=== PATIENT | female | born 1980 | race Asian ===

== ENCOUNTER → 2017-01-22 | Day surgery (SDC) | payer OTHER ==
[~2017-01-22] MED LIST: BUPIVACAINE HCL PF 0.25% 30 ML VIAL ONE; FERRIC SUBSULFATE 8 ML TOP SOLN TOPICAL ONE; IBUP600 PO; IODINE (STRONG-LUGOLS) SOLN 20 DROP/1 ML BTL TOPICAL ONE; KETOROLAC TROMETHAMINE 30 MG/ML (IVP) VIAL IV PUSH ONE; LACTATED RINGER'S 1000 ML INJ 1,000 ML ONE; MIDAZOLAM HCL 2 MG/2 ML VIAL ONE; ONDANSETRON HCL 4 MG/2 ML VIAL IV PUSH ONE; PERI8.6T PO; PREN1TAB30; PROPOFOL 200 MG/20 ML AMP IV ONE; ceFAZolin INJ 1,000 MG VIAL ONE
--- NOTE | 2017-01-22 14:25 | MP ---
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 PROCEDURE Cold knife cone biopsy. Exam under anesthesia. POSTOPERATIVE DIAGNOSIS High-grade cervical dysplasia, SAI 2-3. SURGEON MD Zackery ANESTHESIA General with LMA. ESTIMATED BLOOD LOSS Minimal, less than 50 cc. DRAINS None. OPERATIVE FINDINGS The patient had patulous-appearing cervix but no focal abnormality. The cervix was symmetrical with no visible abnormality. INDICATION FOR PROCEDURE Patient with abnormal Pap revealing high-grade cervical dysplasia. 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 Recommendation was to proceed with cold knife cone biopsy. ANTIBIOTICS The patient received Ancef 1 gram prophylactically. PROCEDURE DESCRIPTION The patient was taken to the operating room in stable condition, underwent general anesthesia with LMA. She was carefully positioned in dorsal lithotomy position using candy-cane stirrups with sequentials placed on the lower extremities for VTE prophylaxis. She was prepped and draped, time-out was conducted and agreed by all present in the room. Simple exam revealed midline pelvis. Uterus was normal size and shape. She had normal-appearing midline cervix. The cervix was injected with 0.25% plain Marcaine, 10 cc, about 5 cc at the 3 and 9 o'clock position. Lugol's solution was applied to the cervix for visualization of Schiller staining. There was no focal abnormality. Previous directed biopsy revealed dysplasia at the 6 and 11 o'clock position. A 360-degree conical-shaped biopsy was excised using a #11 blade and a suture was placed at the 12 o'clock position for identification purposes for the pathologist. The bed of the cone biopsy was cauterized for any active arterial bleeding and then a suture of 2-0 Vicryl was placed in a four quadrant fashion to secure hemostasis. At the completion of the case, hemostasis was confirmed. The cervix was irrigated with normal saline revealing no active bleeding or hematoma. Monsel's solution was applied to the cervical bed for added postoperative hemostasis. At the completion of the case, final count was correct. The patient was stable. She was taken to the recovery room on room air. MD FARNAZ Blackwood/OSEI /9:30 AM /2:21 PM
== END | disposition home or self-care (01) ==
LOC: ESDC 07:28
PROVIDERS: ATTEND Obstetrics & Gynecology
DX: D06.9 Carcinoma in situ of cervix, unspecified (principal)
CPT/HCPCS: 00940; 57520; 88307; J0690; J1885; J2250; J2405; J3010; J7120; 88305